=== PATIENT | female | born 1925 | race Caucasian/White ===

== ENCOUNTER → 2017-01-21 | Outpatient (CLI) | payer MEDICARE, OTHER ==
[~2017-01-21] MED LIST: ASPI-1085 PO; LACT1CAP73 PO; LOPE2TAB24 PO; MULT-806 PO; NITR0.4T28 SL; THYR30TA PO
[2017-01-21 17:20] LABS: ALBUMIN 4.2 G/DL (3.5-5.0); ALBUMIN/GLOBULIN RATIO 1.1 RATIO (1.1-2.2); ALKALINE PHOSPHATASE 98 U/L (38-126); ALT (SGPT) 23 U/L (9-52); ANION GAP 16 MEQ/L (5-15); AST (SGOT) 20 U/L (14-36); BUN/CREATININE RATIO 20 RATIO (6-26); CALCIUM 9.7 MG/DL (8.4-10.2); CHLORIDE 103 MEQ/L (98-107); CO2 - CARBON DIOXIDE 27 MEQ/L (22-30); GLOMERULAR FILTRATION RATE 52; GLUCOSE 103 MG/DL (65-110); LIPASE 158 U/L (23-300); POTASSIUM 4.5 MEQ/L (3.6-5); SODIUM 146 MEQ/L (134-144); TOTAL PROTEIN 7.9 G/DL (6.3-8.2)
== END ==
LOC: LAB 16:48
PROVIDERS: ATTEND Internal Medicine
DX: E53.8 Deficiency of other specified B group vitamins (principal); R53.83 Other fatigue; R11.2 Nausea with vomiting, unspecified
CPT/HCPCS: 36415; 80053; 83690

== ENCOUNTER → 2017-02-17 | Outpatient (CLI) | payer MEDICARE, OTHER ==
[2017-02-17 14:34] LABS: BASOPHILS # (AUTO) 0.1 T/MM3 (0-0.2); BASOPHILS % (AUTO) 1.3 % (0-2); EOSINOPHILS # (AUTO) 0.1 T/MM3 (0-0.5); EOSINOPHILS % (AUTO) 3.1 % (0-4); HCT - HEMATOCRIT 36.9 % (36-46); HGB - HEMOGLOBIN 11.7 GM/DL (12-16); LYMPHOCYTES # (AUTO) 1.5 T/MM3 (1-4.8); LYMPHOCYTES % (AUTO) 33.3 % (23-45); MEAN CORPUSCULAR HGB 28.2 UUG (26-34); MEAN CORPUSCULAR HGB CONC(MCHC 31.7 GM/DL (31-37); MEAN CORPUSCULAR VOLUME 88.9 UM3 (80-100); MEAN PLATELET VOLUME 10.6 UM3 (9.4-12.4); MONOCYTES # (AUTO) 0.3 T/MM3 (0-0.8); NEUTROPHILS #(AUTO)-ABSOLUTE 2.5 T/MM3 (1.8-7.7); NEUTROPHILS % (AUTO) 56.3 % (33-66); RED BLOOD COUNT 4.15 M/MM3 (4.00-5.20); WBC - WHITE BLOOD COUNT 4.5 T/MM3 (4.5-11.0)
[2017-02-17 14:44] LABS: ALBUMIN 4.4 G/DL (3.5-5.0); ALBUMIN/GLOBULIN RATIO 1.4 RATIO (1.1-2.2); ALKALINE PHOSPHATASE 121 U/L (38-126); ALT (SGPT) 36 U/L (9-52); ANION GAP 15 MEQ/L (5-15); AST (SGOT) 26 U/L (14-36); BUN/CREATININE RATIO 20 RATIO (6-26); CALCIUM 9.5 MG/DL (8.4-10.2); CHLORIDE 104 MEQ/L (98-107); CO2 - CARBON DIOXIDE 29 MEQ/L (22-30); GLOMERULAR FILTRATION RATE 52; GLUCOSE 135 MG/DL (65-110); LDH 416 U/L (313-618); MAGNESIUM 2.5 MG/DL (1.6-2.3); POTASSIUM 4.5 MEQ/L (3.6-5); SODIUM 148 MEQ/L (134-144); TOTAL PROTEIN 7.5 G/DL (6.3-8.2)
== END ==
LOC: LAB 14:07
PROVIDERS: ATTEND Internal Medicine Hematology & Oncology
DX: C44.01 Basal cell carcinoma of skin of lip (principal); D89.2 Hypergammaglobulinemia, unspecified; E06.3 Autoimmune thyroiditis; M35.00 Sjogren syndrome, unspecified
CPT/HCPCS: 36415; 80053; 83615; 83735; 85025